=== PATIENT | female | born 1990 | race Two or more races ===

== ENCOUNTER 2021-08-03 21:22 | Emergency (ER) | payer OTHER ==
[~2021-08-03] VITALS: Ht 154.9 cm; Wt 56.7 kg
[2021-08-03 21:46] LABS: Urine Bacteria NONE SEEN /hpf (None Seen); Urine Blood Negative /uL (Negative); Urine Specific Gravity 1.008 (1.001-1.035); Urine WBC <1 /hpf (0 - 5)
[2021-08-04 01:45] VITALS: BP 109/64
[2021-08-04] MEDS ORDERED: CEPHALEXIN 250 MG CAP PO ONE (02:30)
== END 2021-08-04 03:50 | disposition home or self-care (01) ==
LOC: ER 21:22
DX: O23.41 Unspecified infection of urinary tract in pregnancy, first trimester (principal); R33.9 Retention of urine, unspecified; Z3A.11 11 weeks gestation of pregnancy
CPT/HCPCS: 36415; 51702; 76801; 81001; 84702